=== PATIENT | female | born 1965 ===

== ENCOUNTER 2017-06-10 14:35 | Emergency (ER) | payer BC ==
[2017-06-10 14:46] VITALS: BP 111/62
--- NOTE | 2017-06-10 15:11 | UC ---
Dizzy HPI HPI Summary: Patient presents with a past medical history of Hyperlipidemia, and vertigo. She presents today with complaints of dizziness x 1-2 days, with associated headache, and nausea. She states the headaches began two days ago and originally was tht top of her head, she states the headache has improved. She also states she has past medical history of vertigo and has been experiencing dizziness with position changes, that subsides within a few minutes. She denies blurred vision, double vision, but states when she feel dizzy there is a disconnected sensation, or feeling. She reports associated nausea. She denies blurred vision double vision, numbness, weakness, or ataxia. - History Of Current Complaint Chief Complaint: UCDizziness Stated Complaint: VERTIGO, RUNNY NOES Time Seen by Provider: 06/10/17 14:53 Hx Obtained From: Patient ?: No Onset/Duration: Sudden Onset, Lasting Minutes Timing: Intermittent Episode Lasting Severity Initially: Mild Severity Currently: Mild Character: Room Spinning Aggravating Factor(s): Position Change Alleviating Factor(s): Rest Associated Signs And Symptoms: Positive: Nausea - Risk Factors Cardiac Risk Factors: Negative CVA Risk Factor: Negative - Allergies/Home Medications Allergies/Adverse Reactions: Allergies Allergy/AdvReac Type Severity Reaction Status Date / Time Tramadol Allergy Vomiting Verified 06/10/17 14:47 Home Medications: Home Medications Levothyroxine TAB* [Synthroid 150 MCG TAB*] 150 mcg PO DAILY 06/10/17 [History Confirmed 06/10/17] Simvastatin TAB(NF) [Zocor 10 MG (NF)] 10 mg PO DAILY 06/10/17 [History Confirmed 06/10/17] PMH/Surg Hx/FS Hx/Imm Hx Previously Healthy: Yes Endocrine History: Dyslipidemia - Surgical History Surgical History: Yes Surgery Procedure, Year, and Place: gallbladder and tonsils. - Family History Known Family History: Positive: None - Social History Occupation: Employed Full-time Lives: Alone Alcohol Use: None Substance Use Type: None Smoking Status (MU): Heavy Every Day Tobacco Smoker Review of Systems Constitutional: Negative Skin: Negative Eyes: Negative ENT: Negative Respiratory: Negative Cardiovascular: Negative Gastrointestinal: Negative Genitourinary: Negative Motor: Negative Neurovascular: Negative Musculoskeletal: Negative Neurological: Negative Psychological: Negative Is Patient Immunocompromised?: No All Other Systems Reviewed And Are Negative: Yes Physical Exam Triage Information Reviewed: Yes Appearance: Well-Appearing Vital Signs: Initial Vital Signs Temp 97.5 F 06/10/17 14:40 Pulse 72 06/10/17 14:40 Resp 20 06/10/17 14:40 BP 111/62 06/10/17 14:40 Pulse Ox 98 06/10/17 14:40 Vital Signs Reviewed: Yes Eye Exam: Normal ENT Exam: Normal Neck exam: Normal Neck: Positive: 1 Respiratory Exam: Normal Cardiovascular Exam: Normal Abdominal Exam: Normal Musculoskeletal Exam: Normal Neurological Exam: Normal Psychological Exam: Normal Skin Exam: Normal Dizzy Course/Dx - Course Course Of Treatment: Patient presents with a past medical history of vertigo and presents today with complaints of 1-3 days onset intermittent episodes of dizziness triggered by positon changes. She reports she had the APPLY manuever performed by ENT with mininal improvement. She did not want to go to the ER now , or when she was working today. I discussed with her that other posibility is that this could be more that just her vertigo, and she would benefit from MRI to r/o stroke. She states that if her symtpoms do not respond as previous she would go to the ER for imaging. She verbalixed understanding and in agreement with the discharge plan. - Differential Dx/Diagnosis Differential Diagnosis/HQI/PQRI: Benign Paroxysmal Positional Vertigo Provider Diagnoses: vertigo Discharge - Discharge Plan Condition: Stable Disposition: HOME Prescriptions: Meclizine TAB* [Antivert 12.5 TAB*] 25 mg PO TID PRN #14 tab PRN Reason: Vertigo Ondansetron TAB* [Zofran 4 MG Tab*] 4 mg PO Q6H PRN #14 tab PRN Reason: Nausea Patient Education Materials: Vertigo (DC) Referrals: Tal Chiu JR, PA [Primary Care Provider] -
== END 2017-06-10 15:20 | disposition home or self-care (01) ==
LOC: UCEAST 14:35
DX: R42 Dizziness and giddiness (principal); E78.5 Hyperlipidemia, unspecified
CPT/HCPCS: 99212; G0463

== ENCOUNTER 2018-10-22 08:16 | Emergency (ER) | payer BC ==
[2018-10-22 08:54] VITALS: BP 133/79
--- NOTE | 2018-10-22 09:09 | ED ---
Skin Complaint - HPI Summary HPI Summary: Patient is an otherwise healthy 52-year-old female presenting to the ED with bilateral lower extremity erythema, scabs, slightly raised areas of small vesicles resembling a poison tonia/oak, sumac allergic reaction. Patient states she was out weed eating her lawn a few days ago and started noticing the areas yesterday. She endorses intense pruritus. She feels that area spreading is now she is having very small lesions to the bilateral upper arms, chest area as well as 1 small area to the right upper eyelid. Denies any new surroundings, detergents, new animals, and no one else in the household has symptoms. Denies other concerns. - History of Current Complaint Chief Complaint: EDRashSkinAbscess Time Seen by Provider: 10/22/18 08:32 Stated Complaint: ITCHY RASH/BUMPS ON BODY PER PT Hx Obtained From: Patient Onset/Duration: Started Hours Ago Skin Exposure Onset/Duration: Hours Ago Timing: Constant Onset Severity: Moderate Current Severity: Moderate Pain Intensity: 3 Pain Scale Used: 0-10 Numeric Skin Location: Generalized Aggravating Symptom(s): Nothing Alleviating Symptom(s): Nothing Associated Signs & Symptoms: Negative Related History: Possible Reaction to: Environmental Exposure - Allergy/Home Medications Allergies/Adverse Reactions: Allergies Allergy/AdvReac Type Severity Reaction Status Date / Time tramadol Allergy Vomiting Verified 10/22/18 08:27 Home Medications: Home Medications Levothyroxine TAB* [Synthroid 137 MCG TAB*] 137 mcg PO DAILY 10/22/18 [History Confirmed 10/22/18] PMH/Surg Hx/FS Hx/Imm Hx Previously Healthy: Yes Endocrine/Hematology History: Reports: Hx Thyroid Disease Denies: Hx Diabetes Cardiovascular History: Denies: Hx Hypertension Respiratory History: Denies: Hx Asthma, Hx Chronic Obstructive Pulmonary Disease (COPD) GI History: Denies: Hx Ulcer Musculoskeletal History: Denies: Hx Osteoporosis - Cancer History Hx Chemotherapy: No Hx Radiation Therapy: No - Surgical History Surgery Procedure, Year, and Place: gallbladder and tonsils. - Immunization History Hx Pertussis Vaccination: No Immunizations Up to Date: Yes Infectious Disease History: No Infectious Disease History: Denies: Hx Clostridium Difficile, Hx Hepatitis, Hx Human Immunodeficiency Virus (HIV), Hx of Known/Suspected MRSA, Hx Shingles, Hx Tuberculosis, Hx Known/ Suspected VRE, Hx Known/Suspected VRSA, History Other Infectious Disease, Traveled Outside the [place] in Last 30 Days - Family History Known Family History: Positive: None - Social History Occupation: Employed Full-time Lives: With Family Alcohol Use: None Substance Use Type: Reports: None Smoking Status (MU): Heavy Every Day Tobacco Smoker Review of Systems Negative: Fever, Chills, Fatigue, Skin Diaphoresis Negative: Chest Pain Negative: Shortness Of Breath, Cough Genitourinary: Negative Positive: no symptoms reported, see HPI Positive: Rash, Other. Negative: Bruising Neurological: Negative All Other Systems Reviewed And Are Negative: Yes Physical Exam Triage Information Reviewed: Yes Vital Signs On Initial Exam: Initial Vitals Temp Pulse Resp BP Pulse Ox 97.1 F 73 18 147/88 98 10/22/18 08:17 10/22/18 08:17 10/22/18 08:17 10/22/18 08:17 10/22/18 08:17 Vital Signs Reviewed: Yes Appearance: Positive: Well-Nourished Skin: Positive: Warm, Skin Color Reflects Adequate Perfusion, Other - erythematous areas with small vesicles throughout bilateral lower legs resembling poison oak Head/Face: Positive: Normal Head/Face Inspection Eyes: Positive: EOMI, Conjunctiva Clear Neck: Positive: Supple, No Lymphadenopathy Respiratory/Lung Sounds: Positive: Clear to Auscultation, Breath Sounds Present Cardiovascular: Positive: Pulses are Symmetrical in both Upper and Lower Extremities Neurological: Positive: Speech Normal Psychiatric: Positive: Affect/Mood Appropriate Diagnostics - Vital Signs Vital Signs Temp Pulse Resp BP Pulse Ox 10/22/18 08:53 97.7 F 69 18 133/79 95 10/22/18 08:17 97.1 F 73 18 147/88 98 - Laboratory Lab Statement: Any lab studies that have been ordered have been reviewed, and results considered in the medical decision making process. Course/Dx - Course Course Of Treatment: Physical examination, there is no evidence of proximal or scabies. The small erythematous lesions with vesicles appear to be poison tonia/ oak. This coupled with the patient's recent activity with abbreviating is consistent with this history. She is given triamcinolone cream as prescription. She is also given prednisone as prescription. Encouraged oatmeal baths, calamine lotion as well as Benadryl spray. Benadryl at bedtime as well for relief. - Differential Diagnoses - Skin Complaint Differential Diagnoses: Allergic Reaction, Other - Scabies, bedbugs - Diagnoses Provider Diagnoses: Allergic reaction, Poison oak dermatitis Discharge - Sign-Out/Discharge Documenting (check all that apply): Patient Departure Patient Received Moderate/Deep Sedation with Procedure: No - Discharge Plan Condition: Stable Disposition: HOME Prescriptions: predniSONE TAB* [Deltasone TAB*] 50 mg PO DAILY #5 tab MDD 1 Triamcinolone 0.5% CREAM(NF) [Triamcinolone 0.5% CREAM*] 1 applic TOPICAL TID # 2 tube Patient Education Materials: Poison Tonia (ED), Cold Compress or Soak (ED) Referrals: Tal Chiu JR PA [Primary Care Provider] - Additional Instructions: Benadryl at bedtime Prednisone once daily in the morning x 5 days Calamine lotion 3 x daily as well as trimacinolone 3x daily - use on opposite schedule Wrap in onemy bandages to keep the moisture of the lotions in to last longer If symptoms worsen after 2 days, you may need to be rechecked I do not see any signs of bed bugs or scabies at this time, however these can mimic a poison oak rash - Billing Disposition and Condition Condition: STABLE Disposition: Home - Attestation Statements Provider Attestation: I was available for consult. This patient was seen by the BETO. The patient was not presented to, seen by, or examined by me. -Crow
== END 2018-10-22 08:53 | disposition home or self-care (01) ==
LOC: ED 08:16
DX: L23.7 Allergic contact dermatitis due to plants, except food (principal); E07.9 Disorder of thyroid, unspecified; Z88.5 Allergy status to narcotic agent; F17.200 Nicotine dependence, unspecified, uncomplicated
CPT/HCPCS: 99282